=== PATIENT | male | born 1955 | race Caucasian/White ===

== ENCOUNTER 2019-05-30 07:01 | Day surgery (SDC) | payer MEDICAID, OTHER ==
[2019-05-30] VITALS (13 sets, daily range): BP systolic 111–145; BP diastolic 61–77; PULSE 58–75; RESP 14–19; Ht 157.5 cm; Wt 61.9 kg
[~2019-05-30] VITALS: Ht 157.5 cm; Wt 61.9 kg
[~2019-05-30 07:01] MED LIST: CEFAZOLIN 2 GM/50 ML (PMX) 50 ML IVPB ONE; SOD CHLORIDE 0.9% 1,000 ML IV ONE; TERA2CAP3 PO
--- NOTE | 2019-05-30 10:16 | PREAC ---
Date/Time of Note Date/Time of Note DATE: 05/30/19 TIME: 10:15 Anesthesia Eval and Record Evaluation Time Pre-Procedure Interview DATE: 05/30/19 TIME: 10:15 Age 63 Sex male NPO: 8 hrs Preoperative diagnosis right inguinal hernia Planned procedure open right inguinal hernia repair Past Medical History Past Medical History: Includes Renal: BPH Surgery & Anesthesia Issues No known issue Meds Anticoagulation: No Beta Jerson within 24 hr: No Reason Beta Jerson not given: Pt. not on B-Jerson Reported Medications Terazosin Hcl* (Terazosin Hcl*) 2 Mg Capsule, 2 MG PO DAILY 05/30/19 Current Medications Sodium Chloride 1,000 ml @ 75 mls/hr [id number] ONCE IV Last administered on 05/30/19at 07:00; Admin Dose 75 MLS/HR; Start 05/30/19 at 07:00; Stop 05/30/19 at 20:19 Meds reviewed: Yes Allergies Coded Allergies: No Known Allergy (Unverified , 05/30/19) Allergies Reviewed: Yes Labs/Studies Labs Reviewed: Reviewed by anesthesiologist test: N/A Studies: ECG (sr), CXR (nl) Pre-procedure Exam Last vitals Vital Signs Date Temp Pulse Resp B/P (MAP) Pulse Ox O2 O2 Flow FiO2 Time Delivery Rate 05/30/19 97.7 69 16 145/77 99 Room Air 08:39 (99) Airway: Adequate mouth opening Mallampati: Mallampati I Teeth: Normal Lung: Normal Heart: Normal ASA Physical Status ASA physical status: 2 Emergency: None Planned Anesthetic General/MAC: ETT Nerve block: TAP (right) Planned Pain Management Single shot nerve block Pre-operative Attestations Prior to commencing anesthesia and surgery, the patient was re-evaluated, there was verification of: *The patient's identity *The results of appropriate recent lab work and preoperative vital signs *The above evaluation not changing prior to induction *Anesthetic plan, risk benefits, alternative and complications discussed with patient/family; questions answered; patient/family understands, accepts and wishes to proceed. YFN OMALLEY MD May 30, 2019 10:16
[2019-05-30] MEDS ORDERED: ROPIVACAINE 0.5 % 30 ML VIAL ONE (10:21)
[2019-05-30] MEDS ORDERED: DESFLURANE 15 MIN ONE (10:21)
[2019-05-30] MEDS ORDERED: OXYCODONE/ACETAMINOPHEN (5/325) TAB PO PRN ×2 (10:30)
[2019-05-30] MEDS ORDERED: DIPHENHYDRAMINE 50 MG INJ IV PRN (10:30)
[2019-05-30] MEDS ORDERED: FENTAnyl 50 MCG/ML VIAL IV PRN ×3 (10:30)
[2019-05-30] MEDS ORDERED: MEPERIDINE 25 MG INJ IV PRN (10:30)
[2019-05-30] MEDS ORDERED: ONDANSETRON 4 MG INJ IV PRN (10:30)
[2019-05-30] MEDS ORDERED: KETOROLAC 30 MG INJ IV PRN (10:30)
[2019-05-30] MEDS ORDERED: HYDROmorphONE 1 MG/5 ML IV SYRINGE IV PRN ×3 (10:30)
[2019-05-30] MEDS ORDERED: ROCURONIUM 50 MG INJ ONE (10:39)
[2019-05-30] MEDS ORDERED: NEOSTIGMINE 3 MG/3 ML SYRINGE ONE (10:39)
[2019-05-30] MEDS ORDERED: PROPOFOL 20 ML ONE (10:39)
[2019-05-30] MEDS ORDERED: ONDANSETRON 4 MG INJ ONE (10:39)
[2019-05-30] MEDS ORDERED: GLYCOPYRROLATE 0.4 MG INJ ONE (10:39)
[2019-05-30] MEDS ORDERED: CEFAZOLIN 1 GM INJ ONE (10:39)
[2019-05-30] MEDS ORDERED: KETOROLAC 30 MG INJ ONE (10:39)
[2019-05-30] MEDS ORDERED: METOCLOPRAMIDE 10 MG INJ ONE (10:40)
--- NOTE | 2019-05-30 11:14 | OPR ---
Date/Time of Note Date/Time of Note DATE: 05/30/19 TIME: 11:12 Operative Report Procedure Date: May 30, 2019 Preoperative Diagnosis right incarcerated inguinal hernia Postoperative Diagnosis same Operation/Procedure Performed open right incarcerated inguinal hernia repair with large ultrapro hernia system mesh Surgeon see signature line Type Copyist none Anesthesia Type: general Estimated Blood Loss: 0 - 10 ml's Transfusion none Specimen right incarcerated inguinal hernia Grafts/Implants none Complications none Pt Condition Post Procedure: stable Indications This is a 63-year-old male with a right incarcerated inguinal hernia. He request surgical repair. Risks alternatives benefits and personal were discussed the patient. Patient expressed understanding consents to the operation. Procedure Description Patient is taken to the OR and prepped and draped in usual sterile fashion. Surgical timeout was performed. IV antibiotics given. Right inguinal oblique incision was made with a 10 blade. Dissection with cautery was carried down to the external oblique fascia. The external oblique fascia is open with a 15 blade. This incision is extended medial inferiorly lateral sparely with Metzenbaum scissors. Cord structures identified and encircled with a [place] drain. Large incarcerated direct inguinal hernia was identified. This area was then lysed and manually reduced. The disc portion of the ultra pro hernia system mesh was then used to bolster this area. The disc is secured in place the running 0 Prolene from the pubic tubercle along the shelving edge of the inguinal ligament. Superiorly the disc is secured to the internal oblique with interrupted 3-0 Vicryl. [place] mesh was secured in a similar fashion with a running 0 Prolene from the pubocervical along the shelving is able limit. Straps are created reapproximate around the cord structures with interrupted 0 Prolene to recreate the inguinal ring. [place] mesh was secured to the internal oblique with interrupted 3-0 Vicryl. External oblique is closed with running 3- 0 Vicryl. Braxton's fascia was closed with interrupted 3-0 Vicryl. Skin was closed using inzorb observable skin stapler. A tap block was provided by the anesthesiologist the beginning of case. Dry dressings were applied. Nain MENDEZ May 30, 2019 11:14
[2019-05-30] MEDS ORDERED: HYDROCODONE/APAP (5/325) TAB PO ONE (11:30)
--- NOTE | 2019-05-30 14:36 | PAC ---
Date/Time of Note Date/Time of Note DATE: 05/30/19 TIME: 14:36 Post-Anesthesia Notes Post-Anesthesia Note Last documented vital signs Vital Signs Date Temp Pulse Resp B/P (MAP) Pulse Ox O2 O2 Flow FiO2 Time Delivery Rate 05/30/19 97.2 67 18 133/68 98 12:17 (89) 05/30/19 Room Air 12:12 05/30/19 6.0 11:22 Activity: WNL Respiratory function: WNL Cardiovascular function: WNL Mental status: Baseline Pain reasonably controlled: Yes Hydration appropriate: Yes Nausea/Vomiting absent: No YFN OMALLEY MD May 30, 2019 14:36
== END 2019-05-30 14:00 | disposition home or self-care (01) ==
LOC: SDS 07:01
PROVIDERS: ATTEND Surgery
DX: K40.30 Unilateral inguinal hernia, with obstruction, without gangrene, not specified as recurrent (principal)
CPT/HCPCS: 49507; C1781; J0690; J1885; J2175; J2405; J2710; J2765; J2795; Z7512; Z7610